=== PATIENT | female | born 1940 | race Caucasian/White ===

== ENCOUNTER 2017-10-07 05:25 | Inpatient (IN) | payer OTHER, MEDICARE ==
[~2017-10-07] VITALS: Ht 154.9 cm; Wt 59.7 kg
[~2017-10-07 05:25] MED LIST: ATOR40TA16 PO; OMEP20TA93 PO; SERT-132 PO; TRAZ100T10 PO
[2017-10-07] MEDS ORDERED: LACTATED RINGER'S 1000 ML IV PRN (05:45)
[2017-10-07] MEDS ORDERED: ceFAZolin 2 GM PREMIX 50 ML IV SCH (05:45)
[2017-10-07] MEDS ORDERED: POVIDONE IODINE 5% (ANTISEPSIS KIT) 4 APPLICATIONS EACH NARE PRN (05:45)
[2017-10-07] MEDS ORDERED: CHLORHEXIDINE GLUCONATE 4% SOLN 120 ML BTL TOPICAL SCH (05:45)
[2017-10-07] MEDS ORDERED: VANCOMYCIN 1 GM/200 ML INJ 200 ML IV SCH (05:45)
[2017-10-07] MEDS ORDERED: CHLORHEXIDINE GLUCONATE 2 % 1 PACK (2 CLOTHS) TOPICAL PRN (05:45)
[2017-10-07] MEDS ORDERED: METOPROLOL TARTRATE 25 MG TAB PO PRN (05:45)
[2017-10-07] MEDS ORDERED: SODIUM CHLORID 0.9% 500 ML IV PRN (05:45)
[2017-10-07] MEDS ORDERED: GENTAMICIN SULFATE 80 MG/2 ML VIAL ONE (06:05)
[2017-10-07] MEDS ORDERED: ASPI-516 CHEW (06:18)
[2017-10-07] MEDS ORDERED: ACETAMINOPHEN 1000 MG/100 ML 100 ML IV ONE ×2 (06:33→06:45)
[2017-10-07] MEDS ORDERED: MIDAZOLAM HCL 2 MG/2 ML VIAL ONE (08:24)
--- NOTE | 2017-10-07 08:51 | HHI.PR ---
Immediate Post Op Note Procedure Date: October 07, 2017 Pre Op Diagnosis: R Hip OA,Acet Dysplasia Post Op Diagnosis: Same Surgeon: Garret Daniels MD Biomechanical Engineer(s): Kendra Flynn PA-C Procedure: R THR Complications: None Specimen(s) removed: None Estimated blood loss: 550cc Anesthesia: General Drains: None Patient to: PACU Patient Condition: Good Implant/Devices: SEE IMPLANT LOG (if applicable) Date/Time of Procedure: SEE SURGICAL CARE RECORD Garret Daniels MD October 07, 2017 08:51
[2017-10-07] MEDS: SERTRALINE HCL 50 MG TAB PO SCH (09:00)
[2017-10-07] MEDS ORDERED: DO NOT ADM ANY ANTICOAGULANT DRUGS PRN (09:06)
--- NOTE | 2017-10-07 09:14 | MP ---
cc: Garret Daniels MD, Rizalina MD DATE OF OPERATION: DATE OF OPERATION: 10/07/2017. PREOPERATIVE DIAGNOSIS: Right hip osteoarthritis, acetabular dysplasia. POSTOPERATIVE DIAGNOSIS: Right hip osteoarthritis, acetabular dysplasia. PROCEDURE PERFORMED: Right total hip arthroplasty. SURGEON: Martha Daniels MD GOVERNMENT TEACHER: Kendra Flynn PA-C. ANESTHESIA: General. ESTIMATED BLOOD LOSS: 550 mL SPECIMENS: None. COMPLICATIONS: None. DRAINS: None. PLAN OF ACTIVITY: As per orders. PROCEDURE: My rehabilitation assistant, Kendra Flynn PA-C, was present for the entire surgical case. She was medically necessary for the entire case, because of the complexity of the case and to facilitate the performance of the procedure. The SOLUTION SALES SENIOR EXECUTIVE at the back table was not of the skill set to manipulate the instruments, e.g. multiple different soft tissue retractors, trial implants and permanent implants. The patient was brought into the operating room and had satisfactory general endotracheal anesthesia by Department of Anesthesia. The patient was placed in a lateral decubitus position. The right hip and lower extremities down to and including the toes were prepped and draped in the usual sterile manner. Small posterolateral exposure of the hip was made. All bleeders were coagulated. The fascia quinton and gluteus chiquita was incised in line with the skin incision. Charnley retractor was placed in the wound. Great care was made to protect the sciatic nerve throughout the entire operative procedure. The short external rotators were removed as a group, the hip abductors were preserved. Capsulotomy was performed. The patient's hip was dislocated posteriorly. The patient was found to have severe osteoarthritis with acetabular dysplasia. Osteotomy on the neck was made at the appropriate level and preparation of the acetabulum made. Acetabulum, labrum and capsule were surgically excised. Hemispherical reamers were used to initially deepened the cup to 48 mm in outer diameter. Bicentric cup press-fit manner 48 mm was found to be stable and satisfactory. The attention was brought to the proximal femur. Using the mygolaloc system, it was sequentially broached to a 10 standard offset broach. The trial reduction was made with a -3 neck, 28 mm ball. The hip was reduced. The patient was found to have satisfactory stability, satisfactory limb length and satisfactory range of motion. The hip was again dislocated posteriorly and all trial components were removed. The wound was irrigated with copious amounts of sterile saline antibiotic solution. The wound itself was dry. The wound was closed in layers, first the short external rotator were repaired back to greater trochanter with drill holes using #2 Ti-Cron suture. The fascia quinton and gluteus chiquita was closed with #2 Ti-Cron suture, subcuticular layers with 0 Vicryl and 2-0 Vicryl. The skin was approximated with running subcuticular 2-0 nylon. Sterile dressings were applied. The patient tolerated the procedure well and arrived in the recovery room in stable and satisfactory condition. MD EMY Hoff/MUKESH , 08:56 AM , 09:14 AM YARELI
[2017-10-07] MEDS ORDERED: ACETAMINOPHEN 325 MG TAB PO PRN (09:15)
[2017-10-07] MEDS ORDERED: ONDANSETRON HCL 4 MG/2 ML VIAL IVP PRN (09:15)
[2017-10-07] MEDS ORDERED: Post-op Orders (for Pharmacy) XX ONE (09:15)
[2017-10-07] MEDS ORDERED: MORPHINE SULFATE 8 MG/ML INJ IV PUSH PRN (09:15)
[2017-10-07] MEDS ORDERED: ALUMINUM/MAGNESIUM/SIMETH 30 ML CUP PO PRN (09:15)
[2017-10-07] MEDS ORDERED: *morphine SULFATE 8 MG/ML PERIprocedure ONLY ONE ×3 (09:20→11:14)
[2017-10-07] MEDS: LACTATED RINGER'S 1000 ML INJ 1,000 ML IV SCH ×2 (09:30→22:30)
[2017-10-07] MEDS ORDERED: HYDR-3516 PO (09:32)
[2017-10-07] MEDS ORDERED: ECASA81 PO (09:32)
--- NOTE | 2017-10-07 09:36 | HHI.FF ---
Face to Face Verification Diagnosis: (1) Osteoarthritis of right hip Physical Therapy Gait training, Transfer training, bed to chair Hip: Total hip, Protocol: Right Canvas Knee Splint: When in bed & 2 pillows btw thighs Right LE Weight Bearing: WB as tolerated Nursing RN: 3 days/week x 2 weeks Nursing: Dressing changes Dressing Changes: Daily dressing change I have seen patient Chasity Astorga on 10/07/17. My clinical findings support the need for the requested home health care services because: High risk of falls I certify that my clinical findings support that this patient is homebound because: Post-op weakness Garret Daniels MD October 07, 2017 09:36
[2017-10-07] MEDS ORDERED: *MEPERIDINE 25 MG INJ VIAL PERIprocedural Use ONLY ONE (09:40)
[2017-10-07] MEDS: PANTOPRAZOLE SOD 20 MG DELAYED RELEASE TAB PO SCH (10:00)
[2017-10-07] MEDS ORDERED: ONDANSETRON ODT 4 MG TAB PO PRN (10:00)
--- NOTE | 2017-10-07 10:56 | RADRPT ---
EXAM DATE: 10/07/2017 10:25 AM EDT AGE/SEX: 77 years / Female INDICATIONS: Post op right hip CLINICAL DATA: This is the patient's subsequent encounter. Patient reports that signs and symptoms h ave been present for 1 day and indicates a pain score of 0/10. MEDICAL/SURGICAL HISTORY: None. . bilateral hip replacement COMPARISON: No prior [facility] exams available for comparison. FINDINGS: Multiple views the right hip were obtained as well as an AP view of the pelvis. It demonstrates the p atient is status post bilateral hip arthroplasties. The right acetabular and femoral components are i ntact and normal alignment. There is adjacent soft tissue swelling and gas. There is mild osteopenia. Postoperative changes are noted in the lower lumbar status post fusion. CONCLUSION: Expected postoperative changes status post right hip arthroplasty. Electronically signed by: Bogdan Bellamy MD 10/07/2017 10:54 AM EDT
[2017-10-07] MEDS ORDERED: LIDOCAINE HCL 1% PF 5 ML SYRINGE OTHER ONE (12:00)
[2017-10-07] MEDS ORDERED: ePHEDrine/NS 25 MG/5 ML SYRINGE IV ONE (12:00)
[2017-10-07] MEDS ORDERED: NEOSTIGMINE 5 MG/5 ML SYRINGE IV PUSH ONE (12:00)
[2017-10-07] MEDS ORDERED: KETOROLAC TROMETHAMINE 30 MG/ML (IVP) VIAL IV PUSH ONE (12:00)
[2017-10-07] MEDS ORDERED: ROCURONIUM INJ 50 MG/5 ML SYRINGE IV PUSH ONE (12:00)
[2017-10-07] MEDS ORDERED: DEXAMETHASONE SOD PHOS 4 MG/ML VIAL IV ONE (12:00)
[2017-10-07] MEDS ORDERED: PHENYLEPH/NS 1000 MCG/10 ML SYR IV ONE (12:00)
[2017-10-07] MEDS ORDERED: PROPOFOL 200 MG/20 ML AMP IV ONE (12:00)
[2017-10-07] MEDS ORDERED: ONDANSETRON HCL 4 MG/2 ML VIAL IV ONE (12:00)
[2017-10-07] MEDS ORDERED: GLYCOPYRROLATE 1 MG/5 ML SYRINGE IV PUSH ONE (12:00)
[2017-10-07] MEDS ORDERED: WALKER WHEELS/F1 MIS (12:08)
[2017-10-07] MEDS ORDERED: BEDSIDE COMMODE1 MI1 (12:08)
[2017-10-07 12:15] VITALS: BP 116/56; PULSE 76; RESP 16; TEMP 97.4; O2SAT 98
[2017-10-07] MEDS: ACETAMINOPHEN/HYDROcodone 325 MG/5 MG TAB PO PRN ×3 (12:58→23:53)
[2017-10-07 16:00] VITALS: BP 112/54; PULSE 75; RESP 16; TEMP 97.7; O2SAT 96
[2017-10-07 20:00] VITALS: BP 135/63; PULSE 73; RESP 17; TEMP 97.6; O2SAT 93
[2017-10-07] MEDS: ASPIRIN EC 81 MG TABEC PO SCH (20:21)
[2017-10-07] MEDS ORDERED: ATORVASTATIN 40 MG TAB PO SCH (21:00)
[2017-10-07] MEDS ORDERED: traZODone HCL 100 MG TAB PO SCH (21:00)
[2017-10-08 00:01] VITALS: BP 130/60; PULSE 77; RESP 18; TEMP 97.9; O2SAT 93
[2017-10-08 04:00] VITALS: BP 125/59; PULSE 69; RESP 17; TEMP 98; O2SAT 93
[2017-10-08 04:22] LABS: HEMATOCRIT 24.9 % (35.0-46.0); HEMOGLOBIN 8.6 GM/DL (11.6-15.3)
[2017-10-08] MEDS: ACETAMINOPHEN/HYDROcodone 325 MG/5 MG TAB PO PRN (05:02)
--- NOTE | 2017-10-08 06:46 | PD.ORT.PN ---
Subjective Subjective Remarks pt doing well with the hip, mild post op pain, would like to go home this afternoon Objective Vitals Vital Signs Date Time Temp Pulse Resp B/P (MAP) Pulse Ox O2 Delivery O2 Flow Rate FiO2 10/08/17 04:00 98.0 69 17 125/59 (81) 93 10/08/17 00:01 97.9 77 18 130/60 (83) 93 10/07/17 20:00 93 Room Air 10/07/17 20:00 97.6 73 17 135/63 (87) 93 10/07/17 16:00 97.7 75 16 112/54 (73) 96 10/07/17 12:15 97.4 76 16 116/56 (76) 98 10/07/17 11:45 Nasal Cannula 2.00 10/07/17 11:30 97.6 76 12 107/51 (69) 100 Nasal Cannula 3 10/07/17 11:00 76 13 115/56 (75) 100 Nasal Cannula 3 10/07/17 10:30 72 13 109/55 (73) 100 Nasal Cannula 3 10/07/17 10:00 66 14 97/49 (65) 100 Nasal Cannula 3 10/07/17 09:45 65 14 124/59 (80) 97 Nasal Cannula 3 10/07/17 09:30 63 15 115/56 (75) 100 Nasal Cannula 3 10/07/17 09:15 69 16 124/58 (80) 100 Nasal Cannula 3 10/07/17 09:03 96.9 85 16 126/62 (83) 100 Nasal Cannula 3 I/O 10/07/17 10/07/17 10/07/17 10/08/17 10/08/17 10/08/17 07:00 15:00 23:00 07:00 15:00 23:00 Intake Total 3000 ml 480 ml 460 ml Output Total 550 ml Balance 2450 ml 480 ml 460 ml Intake Oral 480 ml 460 ml Other 3000 ml Output Estimated Blood Loss 550 ml # Voids 2 6 Result Diagram: 10/08/17 0344 Objective Remarks right hip dressing dry and intact, ice in place no calf tenderness no limb length discrepancy +NVI Assessment & Plan Assessment and Plan POD # 1 s/p R VIGNESH PT-WBAT Aspirin 81 mg bid x 4 weeks dvt prop discharge home with [facility] pt and nursing this afternoon, orthopedically stable Kendra Flynn Oct 08, 2017 06:46
[2017-10-08 08:00] VITALS: BP 138/64; PULSE 68; RESP 16; TEMP 99.4; O2SAT 96
[2017-10-08] MEDS: SERTRALINE HCL 50 MG TAB PO SCH (09:00)
[2017-10-08] MEDS: ASPIRIN EC 81 MG TABEC PO SCH (09:04)
[2017-10-08] MEDS: PANTOPRAZOLE SOD 20 MG DELAYED RELEASE TAB PO SCH (09:04)
[2017-10-08] MEDS ORDERED: DOCUSATE SODIUM 100 MG CAP PO SCH (21:00)
== END 2017-10-08 11:17 | disposition home health service (06) | DRG 470 ==
LOC: HSDI 05:25 → N06B 11:45
PROVIDERS: ADMIT Orthopaedic Surgery Orthopaedic Surgery of the Spine; ATTEND Orthopaedic Surgery Orthopaedic Surgery of the Spine
PROC: 0SR904A Replacement of Right Hip Joint with Ceramic on Polyethylene Synthetic Substitute, Uncemented, Open Approach (ICD-10-PCS; principal; 2017-10-07 07:04)
DX: M16.11 Unilateral primary osteoarthritis, right hip (principal); E78.5 Hyperlipidemia, unspecified; Q65.89 Other specified congenital deformities of hip; K21.9 Gastro-esophageal reflux disease without esophagitis; F41.9 Anxiety disorder, unspecified; M54.2 Cervicalgia; G47.30 Sleep apnea, unspecified
CPT/HCPCS: 73501; 85014; 85018; 86850; 86900; 86901; 86920; 94150; C1776; J0131; J0690; J1100; J1580; J1885; J2175; J2250; J2270; J2370; J2405; J2710; J3010; J7120; L1830